=== PATIENT | female | born 1935 | race African-American/Black ===

== ENCOUNTER 2017-07-18 12:15 | Outpatient (CLI) | payer MEDICARE, BC ==
[2017-07-18 13:32] LABS: Bilirubin Negative (Negative); Blood, Urine Trace (Negative); Glucose, Urine (Dipstick) Negative (Negative); Ketone, Urine Negative (Negative); Nitrite Negative (Negative); Protein, Urine (Dipstick) Negative (Neg-Trace); Urobilinogen 0.2 mg/dL (0.2-1.0)
[2017-07-18 13:42] LABS: Bacteria/HPF 1+ HPF (None Seen); Renal Epithelial 0-3 HPF (0-3)
[2017-07-18 13:59] LABS: Anion Gap 13 mmol/L (10-20); BUN (Urea Nitrogen) 25 mg/dL (9.8-20.1); Calc. Creatinine Clearance 0 mL/min (70-130); Calcium 8.9 mg/dL (7.8-10.44); Carbon Dioxide 23 mmol/L (23-31); Chloride 107 mmol/L (98-107); Estimated GFR-MDRD 42
--- NOTE | 2017-07-18 15:27 | ULT ---
Bilateral renal ultrasound: HISTORY: Renal cyst. FINDINGS: The right kidney measures 11 cm in length. The left kidney likely measures 9 cm in length. An accu rate measurement cannot be obtained due to the presence of a large left inferior pole cyst. No hydronephrosis is seen on either side. Multiple cysts are seen in either kidney. The largest on the right is in the superior aspect measuring 3.6 cm. The largest cyst on the left is in the infer ior pole measuring 9.7 cm. The urinary bladder volume is 323 cc. The urinary bladder is grossly un remarkable. IMPRESSION: Bilateral renal cysts. POS: VEE
== END 2017-07-18 12:16 | disposition home or self-care (01) ==
LOC: SCSULT 12:15
PROVIDERS: ATTEND Urology
DX: N28.1 Cyst of kidney, acquired (principal); R31.9 Hematuria, unspecified
CPT/HCPCS: 36415; 76770; 80048; 81001; 87086; 88112